=== PATIENT | male | born 1995 | race Caucasian/White ===

== ENCOUNTER 2022-01-28 06:42 | Emergency (ER) | payer MEDICAID ==
[~2022-01-28] VITALS: Ht 175.3 cm; Wt 75.0 kg
[2022-01-28] MEDS ORDERED: KETOROLAC 60MG/2ML VIAL IM ONE (07:00)
[2022-01-28] MEDS ORDERED: T3 PO (08:07)
[2022-01-28] MEDS ORDERED: IBUP-2028 PO (08:07)
[2022-01-28] MEDS ORDERED: KETOROLAC 30MG/ML VIAL IM NR (08:45)
[2022-01-28 09:20] VITALS: BP 130/68
== END 2022-01-28 09:56 | disposition home or self-care (01) ==
LOC: ER 06:42
DX: S70.11XA Contusion of right thigh, initial encounter (principal); S80.12XA Contusion of left lower leg, initial encounter; R51.9 Headache, unspecified; M54.59 Other low back pain; R10.9 Unspecified abdominal pain; Y93.55 Activity, bike riding; V13.4XXA Pedal cycle driver injured in collision with car, pick-up truck or van in traffic accident, initial encounter; Y92.414 Local residential or business street as the place of occurrence of the external cause
CPT/HCPCS: 70450; 72125; 73552; 74176; 96372; 99284; J1885

== ENCOUNTER 2024-03-29 09:48 | Emergency (ER) | payer MEDICAID ==
[~2024-03-29] VITALS: Ht 165.1 cm; Wt 83.0 kg
[~2024-03-29 09:48] MED LIST: IBUP-2028 PO; T3 PO
[2024-03-29 09:59] VITALS: O2SAT 100
[2024-03-29 10:40] VITALS: BP 140/79; PULSE 66; RESP 18; O2SAT 98
[2024-03-29] MEDS ORDERED: IBUP-2028 MT (11:23)
[2024-03-29 11:38] VITALS: TEMP 97.8
[2024-03-29] MEDS: ACETAMINOPHEN 325MG TABLET PO ONE (11:38)
== END 2024-03-29 12:00 | disposition home or self-care (01) ==
LOC: ER 09:48
DX: S60.011A Contusion of right thumb without damage to nail, initial encounter (principal); W23.0XXA Caught, crushed, jammed, or pinched between moving objects, initial encounter; Y93.89 Activity, other specified; Y92.89 Other specified places as the place of occurrence of the external cause; Y99.8 Other external cause status
CPT/HCPCS: 29125; 73140; 99283